=== PATIENT | female | born 1950 | race Caucasian/White ===

== ENCOUNTER → 2018-04-24 | Outpatient (CLI) | payer OTHER, MEDICARE | LOC: FIMAGING 09:11 | PROVIDERS: ATTEND Orthopaedic Surgery | DX: M16.12 Unilateral primary osteoarthritis, left hip (principal); M48.061 Spinal stenosis, lumbar region without neurogenic claudication; M43.16 Spondylolisthesis, lumbar region ==

== ENCOUNTER 2018-05-20 10:20 | Inpatient (IN) | payer OTHER ==
--- NOTE | 2018-05-20 06:18 | PDHPUP ---
History & Physical Update H&P update statement: This history and physical update is based on an assessment of the patient which was completed after admission or registration (within 24 hours), but prior to the surgery/procedure. H&P update: no change in patient's condition since H&P completed
--- NOTE | 2018-05-20 06:19 | PDIAF ---
- Diagnosis Diagnosis: left hip djd Code Status: Full Code - Medication Management Discharge Medications: Medications to Continue on Transfer Gabapentin [Neurontin 100 MG (*)] 200 mg PO HS PRN 05/03/18 [Last Taken Unknown] Discharge Medications: Refer to the Discharge Home Medication list for PRN reason. - Orders Services needed: Home Care, Physical Therapy Home Care Face to Face: I certify that this patient was under my care and that I had the required wgva-in-dzlf encounter meeting the encounter requirements on the discharge day. My findings support the fact that the patient is homebound as defined in Home Care Face to Face Continued: CMS Chapter 7 Medicare Benefits Manual 30.1.1 , The condition of the patient is such that there exists a normal inability to leave home and consequently, leaving home would require a considerable and taxing effort. Diet Recommendation: no restrictions on diet Diet Texture: Regular Texture Diet Additional Instructions: TOTAL JOINT ARTHROPLASTY DISCHARGE INSTRUCTIONS 1. Your surgeon follows the [facility] protocol for reducing your risk of DVT (blood clots) following surgery. Medication will be ordered to prevent blood clots. A sudden increase in calf pain and/or swelling could indicate a blood clot in your leg. If this occurs, please call your surgeon or his/her diver assistant. An ultrasound of the leg may be necessary to diagnose a blood clot. If you have conditions that make you a higher risk for blood clots, your surgeon may use more aggressive ways to prevent them. Notify your surgeon if you think you are a high risk for blood clots. 2. Wear your white surgical stockings (KERA hose) for 2 weeks. This decreases your swelling and may help prevent blood clots. It is ok to remove KERA hose at night time to give your legs a break. 3. Swelling and bruising in the surgical leg is common. If you feel that it is excessive, please notify your surgeon. 4. Elevate your surgical leg with the ankle above the hip several times every day. Please keep the leg straight when you elevate by putting pillows under your foot. Do not put pillows under your knee. This will make being able to fully straighten more difficult. This is uncomfortable, but try to do it as much as possible. 5. For total knee replacements use compressive wrap on your knee for 3-5 days after surgery, then you can discontinue it. 6. Use a walker or crutches for 1-2 weeks. Progress your weight-bearing as tolerated. You may start to use a cane when you feel stable and safe. 7. You will receive physical therapy instructions in the hospital. Continue those exercises at home. There are additional exercises in the total joint booklet you were given before surgery. Outpatient physical therapy will begin 7- 10 days after surgery. Please schedule this in advance. 8. Use ice on your knee at least 3-5 times every day for 30 minutes. This helps reduce pain and swelling. Also use it at night before falling asleep. 9. Leave your surgical dressing in place for 2 weeks. Your dressing is water resistant, but not waterproof. Cover it with Saran Wrap or Kospf-p-Dqjf before showering. You may shower as soon as you feel safe entering a shower. If you notice bleeding from your incision 2 or 3 days after surgery, please notify your surgeon. 10. Due to narcotics, decreased activity and altered diet, most patients experience constipation after surgery. Use wrju-qdg-wjewghl stool softeners while you are on narcotics. 11. You may drive a car when you are comfortable bearing weight, have good muscular control of your leg and are off narcotics. This usually occurs 2-4 weeks after surgery, depending on which leg was operated on. 12. If there are questions not addressed here, please refer the [facility] book given for more information. If you still have questions, please contact your surgeon s office. 13. If you have a life-threatening emergency, please call 911 and go to the emergency room immediately. For non-life threatening emergencies, please call your physicians office for advice before going to the emergency room. - Follow Up Care Current Providers and Referrals: Wendie Koch PA [Primary Care Provider] - Aftab Ty MD [Medical Doctor] -
[~2018-05-20 10:20] MED LIST: MIDAZOLAM 2 MG/2 ML VIAL IVP ONE; ROPIVACAINE 0.2% 80 MG, EPINEPHrine 0.2 MG, KETOROLAC TROMETHAMINE 30 MG, morphINE 10 M... IU ONE; TRANEXAMIC ACID 1,000 MG in NS 100 ML IV ONE
[2018-05-20] MEDS ORDERED: ACETAMINOPHEN 325 MG TAB PO ONE (11:06)
[2018-05-20] MEDS ORDERED: ceFAZolin 2 GM/DEXTROSE 100 ML IV ONE (11:06)
[2018-05-20] MEDS ORDERED: FAMOTIDINE 20 MG TAB PO ONE (11:06)
[2018-05-20] MEDS ORDERED: LIDOCAINE 1% 2 ML INJ ID PRN (11:07)
[2018-05-20] MEDS ORDERED: LR 1,000 ML IV ONE (11:07)
[2018-05-20] MEDS ORDERED: fentaNYL 100 MCG/2 ML INJ ONE (11:46)
[2018-05-20] MEDS ORDERED: PROPOFOL/EMULSION 500 MG/50 ML BOTTLE IV ONE (11:48)
[2018-05-20] MEDS ORDERED: ceFAZolin 1 GM/5 ML SYR ONE (12:01)
[2018-05-20] MEDS ORDERED: MIDAZOLAM 2 MG/2 ML VIAL ONE ×2 (12:34→13:09)
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
[2018-05-20] MEDS ORDERED: MEPERIDINE 25 MG/0.5 ML AMP IVP PRN (12:40)
[2018-05-20] MEDS ORDERED: oxyCODONE IR 5 MG TAB PO PRN (12:40)
[2018-05-20] MEDS ORDERED: fentaNYL 100 MCG/2 ML INJ IVP PRN (12:40)
[2018-05-20] MEDS ORDERED: PROMETHAZINE HCL 25 MG/ML INJ IVP PRN ×2 (12:40→14:39)
[2018-05-20] MEDS ORDERED: ONDANSETRON 4 MG/2 ML VIAL IVP PRN ×2 (12:40→14:39)
[2018-05-20] MEDS ORDERED: HYDROmorphONE/DILAUDID 2 MG/ML INJ IVP PRN (12:40)
[2018-05-20] MEDS ORDERED: ALBUTEROL 3 ML DEYVIAL IH PRN (12:40)
[2018-05-20] MEDS ORDERED: DIAZEPAM 5 MG/ML 1 ML SYR IVP PRN (12:40)
[2018-05-20] MEDS ORDERED: NALOXONE HCL 0.4 MG/ML INJ IVP PRN (12:40)
[2018-05-20] MEDS ORDERED: METOCLOPRAMIDE 10 MG/2 ML VIAL IVP PRN ×2 (12:40→14:39)
[2018-05-20] MEDS ORDERED: BUPIVACAINE/DEXTROSE 7.5MG/ML 2 ML SPINAL AMP SP ONE (12:52)
[2018-05-20] MEDS ORDERED: ONDANSETRON 4 MG/2 ML VIAL ONE (14:03)
[2018-05-20] MEDS ORDERED: DEXAMETHASONE 4 MG/ML VIAL ONE (14:03)
[2018-05-20] MEDS ORDERED: GABAPENTIN 100 MG CAP PO PRN (14:39)
[2018-05-20] MEDS ORDERED: TEMAZEPAM 15 MG CAP PO PRN (14:39)
[2018-05-20] MEDS ORDERED: diphenhydrAMINE 25 MG CAP PO PRN (14:39)
[2018-05-20] MEDS ORDERED: LACTULOSE 20 GM/30 ML UDCUP PO PRN (14:39)
[2018-05-20] MEDS ORDERED: MAGNESIUM HYDROXIDE 30 ML UDCUP PO PRN (14:39)
[2018-05-20] MEDS ORDERED: ONDANSETRON DISINTEGRATING 4 MG TAB PO PRN (14:39)
[2018-05-20] MEDS ORDERED: POLYETHYLENE GLYCOL 3350 17 GM PKT PO PRN (14:39)
[2018-05-20] MEDS ORDERED: BISACODYL 10 MG SUPP PR PRN (14:39)
[2018-05-20] MEDS ORDERED: CYCLOBENZAPRINE 10 MG TAB PO PRN (14:39)
[2018-05-20] MEDS ORDERED: DIPHENOXYLATE/ATROPINE LOMOTIL 1 TAB PO PRN (14:39)
[2018-05-20] MEDS ORDERED: PROMETHAZINE HCL 25 MG SUPPR PR PRN (14:39)
--- NOTE | 2018-05-20 14:39 | POSTOPPROG ---
Post Op Note Date of Operation: 05/20/18 Surgeon: Aftab Ty Technical Support Consultant: edward Anesthesiologist: jeffry Anesthesia: Spinal Pre-op Diagnosis: left hip djd Post-op Diagnosis: same Indication: same Procedure: left raj Inf/Abcess present in the surg proc area at time of surgery?: No Depth: Deep Incisional (Fascial) EBL: 100-500 Drains: Hemovac
--- NOTE | 2018-05-20 15:06 | POSTANESTH ---
Post Anesthetic Evaluation Cardiovascular Status: Normal, Stable Respiratory Status: Normal, Stable Level of Consciousness/Mental Status: Can Participate in Eval Pain Control: Adequate, Prn Tx Ordered Complications Possibly Related to Anesthesia: None Noted
[2018-05-20] MEDS: LR 1,000 ML IV SCH (16:41)
[2018-05-20] MEDS: oxyCODONE IR 5 MG TAB PO PRN ×3 (16:44→23:50)
[2018-05-20] MEDS: ACETAMINOPHEN 325 MG TAB PO SCH ×2 (18:21→23:34)
[2018-05-20] MEDS: ceFAZolin 2 GM/DEXTROSE 100 ML IV SCH (19:55)
[2018-05-20] MEDS: SENNOSIDES/DOCUSATE SODIUM TAB PO SCH (19:59)
[2018-05-20] MEDS: FAMOTIDINE 20 MG TAB PO SCH (19:59)
[2018-05-20] MEDS: ASPIRIN 325 MG TAB PO SCH (21:02)
[2018-05-20] MEDS: TRANEXAMIC ACID 650 MG TAB PO SCH (21:02)
[2018-05-21] MEDS: LR 1,000 ML IV SCH (01:30)
[2018-05-21] MEDS: ceFAZolin 2 GM/DEXTROSE 100 ML IV SCH (03:12)
[2018-05-21] MEDS: ACETAMINOPHEN 325 MG TAB PO SCH ×2 (05:23→11:37)
[2018-05-21] MEDS: TRANEXAMIC ACID 650 MG TAB PO SCH (05:25)
[2018-05-21] MEDS: oxyCODONE IR 5 MG TAB PO PRN (05:41)
--- NOTE | 2018-05-21 06:28 | PDMN ---
Medical Necessity Medical necessity: Pt meets INPT criteria per and [facility] [place] S-560 Hip Arthroplasty (MC IPO procedure).
[2018-05-21] MEDS ORDERED: traMADol 50 MG TAB PO PRN (08:40)
[2018-05-21] MEDS: SENNOSIDES/DOCUSATE SODIUM TAB PO SCH (08:43)
[2018-05-21] MEDS: ASPIRIN 325 MG TAB PO SCH (08:43)
[2018-05-21] MEDS: FAMOTIDINE 20 MG TAB PO SCH (08:44)
--- NOTE | 2018-05-21 09:04 | SOAPPROG ---
SOAP Progress Note Assessment/Plan: Assessment: s/p raj Plan:d/c home wehn cleared by pt stable bp dvt precautions reviewed f/u at two weeks , seek attn for increasing pain, leg pain, or other focal complaint 05/21/18 09:01 Subjective: nervous about going home no cp or sob minimal pain 10/03 currently Objective: Vital Signs Temp Pulse Resp BP Pulse Ox 36.7 C 68 17 98/54 L 97 05/21/18 07:40 05/21/18 07:40 05/21/18 07:40 05/21/18 07:40 05/21/18 07:40 Laboratory Results 05/21/18 05:00 05/20/18 05/21/18 05/22/18 05:59 05:59 05:59 Intake Total 3615 Output Total 1500 350 Balance 2115 -350 dressing clean , dry and intact intact pdf,df,ehl toes warm and pink neg homans greyson xrays stable alignment no fx or lucency ICD10 Worksheet Patient Problems: Problems Problem Status Onset Hip arthritis Acute - ICD10 Problem Qualifiers (1) Hip arthritis
--- NOTE | 2018-05-21 10:39 | ASDISCHSUM ---
Discharge Information Plan Status:Home with Home Health Medically Cleared to Leave:05/21/2018 Discharge Date:05/21/2018 CM D/C Disposition: ADT D/C Disposition:Home Health Service Projected Discharge Date:05/21/2018 11:00 AM Transportation at D/C: Discharge Delay Reason: Follow-Up Date:05/21/2018 11:00 AM Discharge Slot: Final Diagnosis: Placement Information Referral Type:*Home Health Care Services Referral ID:[id number] Provider Name:[facility] Address 1[address] [facility] [address] Address 2: City:[place] Selection Factors: State:[place] Patient Contact Information Contact Name:ALANA Relationship:Friend Address: Work Phone: City: [facility] Phone: [facility] Code: Email: Financial Information Financial Class:Medicare Primary Plan Desc:MEDICARE OUTPATIENT Primary Plan Number:[id number] Secondary Plan Desc:Cardiac Dimensions Secondary Plan Number:[id number] Assessment Information LACE LACE Length of stay for Answers: 1 day current admission Acuity / Level of Answers: Yes Care: Did the patient have an inpatient admission? Comorbidities - select Answers: Opioid dependence all that apply / Chronic pain # of Emergency department Answers: 0 visits in the last 6 months Social determinants Answers: Mental health diagnosis (anxiety, depression, pers onality disorders, etc.) Score: 11 Date Signed: 05/21/2018 10:38 AM Electronically Signed By:SOPHIE Cee [facility] CM Progress Note CM Note CM Note Notes: Pts case discussed w/ JAKE Padgett and Agustina, physical therapist. Pt is being discharged today. CM met w/ pt for dispo planning. Pt has a son that is schizophrenic. Pt has supportive friends that she can talk to. Pt is aware of [facility]. Pt is agreeable to have HC services. Referral made to [facility]. [facility] is able to accept. CM confirmed pts phone number and address. Dayron will call to give report. CM available for changes. Plan: [facility]; PT Date Signed: 05/21/2018 10:37 AM Electronically Signed By:SOPHIE Cee Intervention Information
--- NOTE | 2018-05-21 10:39 | ASMTCMCOM ---
CM Note CM Note Notes: Pts case discussed w/ Dayron RN and Agustina, physical therapist. Pt is being discharged today. CM met w/ pt for dispo planning. Pt has a son that is schizophrenic. Pt has supportive friends that she can talk to. Pt is aware of [facility]. Pt is agreeable to have HC services. Referral made to [facility]. [facility] is able to accept. CM confirmed pts phone number and address. Dayron will call to give report. CM available for changes. Plan: [facility]; PT Date Signed: 05/21/2018 10:37 AM Electronically Signed By:SOPHIE Cee
[2018-05-21 12:09] VITALS: BP 109/44
--- NOTE | 2018-05-25 08:19 | GOP ---
DATE OF OPERATION: 05/20/2018 SURGEON: Aftab Ty MD INSTANTIZER OPERATOR: Oliver Villafuerte, rn neurosurgical who was a medical necessity for the entirety of the case. PREOPERATIVE DIAGNOSIS: Left hip degenerative joint disease. POSTOPERATIVE DIAGNOSIS: Left hip degenerative joint disease. PROCEDURE PERFORMED: Left total hip arthroplasty, MAKOplasty, anterior hip. FINDINGS: SPECIMENS: To Pathology, the femoral head. INDICATIONS: The patient is a 68-year-old woman with end-stage arthritis to her left hip. She has c linical and radiographic features consistent with this. She has failed all attempts at conservative management. I have, therefore, recommended operative intervention. I have outlined the surgical pro cedure, risks, benefits, and alternatives. She wished to proceed. Written consent was signed and pl aced in patient's chart. DESCRIPTION OF PROCEDURE: The patient was identified in the preanesthesia area. The left hip clearl y demarcated as the operative site with indelible marker. She was given 2 g of Ancef intravenously i n route to the operative suite. In the OR, spinal anesthetic was placed, followed by sedation. She was positioned in the supine position. All bony prominences were well padded. Appropriate time-out procedure was carried out. The pelvis and lower extremities were sterilely prepped and draped in usu al fashion. Attention was first turned to the right hemipelvis. A small incision was made over the iliac crest, 3 pins were then placed, and the pelvic reference array affixed. Attention was then turned to the left hip an anterior approach was made. Thick subcutaneous flaps we re elevated. The fascia was opened in the origin of its fibers and the tensor retracted laterally. The underlying vascular structures were identified, ligated, cauterized, and transected. The rectus was elevated off the capsule and retractors were placed into an extracapsular position. A T capsulot kandice was made. Retractors were placed into an intracapsular position. A bony wedge was withdrawn fro m the femoral neck and the femoral head withdrawn. An acetabular check point had been placed as well . All soft tissue was removed from the acetabulum. The bony landmarks were entered into the compute r in standard fashion. Following the MAKOplasty protocol, reaming was carried out with a 54 mm reamer in an open angle of 40 degrees and anteversion of 20 degrees. A 54 mm Trident I shell was then impacted, confirmed to be f ully seated. A 0-degree X3 liner was then placed and again confirmed to be fully seated, and attenti on was then turned to the femur, which was delivered through the use of soft tissue releases and exte nsion of the table. The proximal canal was opened and serial broaching carried out to a size 4 stem. Trial reduction was carried out, and ultimately, a 36 mm +2.5 mm neck length was selected for the h ead and neck. This restored full leg lengths and there was no instability with full extension, exter nal rotation to 90 degrees. The trial stem was withdrawn. The final stem was impacted confirmed to be fully seated. Additional trialing was carried out, and ultimately, a 36 mm +2.5 mm neck length head was then placed across the cleansed trunnion. The hip was copiously irrigated and reduced. Stability profile allow ed full extension with external rotation to 90 degrees without subluxation. Leg lengths were equal. Hip was copiously irrigated with pulsatile lavage. The tissue injected with a joint cocktail of ropi vacaine, morphine, Toradol, and epinephrine. The fascia closed using a 0 Vicryl. A 10-Dutch drain had been placed. Subcutaneous tissue closed using 2-0 Monocryl and a zip line closure, followed by p ressure dressing at the surface. She was awakened, extubated, and taken to recovery room in good, st able condition. TOTAL TOURNIQUET TIME: None. COMPLICATIONS: None. IMPLANTS: [place] Trident II acetabular shell 54 mm, a 0-degree X3 liner, 36 mm inner diameter Accol ryann II 127 degree neck angle hip stem size 4, and a Biolox Delta ceramic head 36 mm, +2.5 mm neck constance [facility]. DISPOSITION: To the recovery room, then the floor. She is weightbearing, range of motion as tolerat ed with anterior hip precautions. /[id number]/MODL
--- NOTE | 2018-05-25 08:39 | GDS ---
ADMITTING DIAGNOSIS: Left hip degenerative joint disease. DISCHARGE DIAGNOSIS: Left hip degenerative joint disease. PROCEDURE: Left total hip arthroplasty. HISTORY OF PRESENT ILLNESS: The patient is a 68-year-old woman with end-stage arthritis to her left hip. She has failed all attempts at conservative management. She presents today for elective total hip replacement. HOSPITAL COURSE: She was admitted to the hospital after uncomplicated total hip arthroplasty. She t olerated the procedure well. Overnight, she had no complications. At the time of discharge, she was tolerating an oral diet. Pain was well controlled on oral medicines. She was voiding without diffi culty. Dressing was clean, dry, and intact. She had negative Homans. X-rays were anatomic. DISCHARGE ACTIVITY: Weightbearing as tolerated. Anterior hip precautions. Daily dressing changes. No soaking or immersion. FOLLOWUP: In 2 weeks. Seek attention for increasing redness, swelling, drainage. DISCHARGE MEDICATIONS: Oxycodone 5 mg 1-2 every 6 hours p.r.n. pain, aspirin 325 mg p.o. daily for 6 weeks. /[id number]/MODL
== END 2018-05-21 12:06 | disposition home health service (06) | DRG 470 ==
LOC: F3N 10:49
PROVIDERS: ADMIT Orthopaedic Surgery; ATTEND Orthopaedic Surgery
PROC: 0SRB04Z Replacement of Left Hip Joint with Ceramic on Polyethylene Synthetic Substitute, Open Approach (ICD-10-PCS; principal; 2018-05-20 12:45)
DX: M16.12 Unilateral primary osteoarthritis, left hip (principal); I45.10 Unspecified right bundle-branch block; F41.9 Anxiety disorder, unspecified; F32.9 Major depressive disorder, single episode, unspecified
CPT/HCPCS: 97110-GP; 97116-GP; 97161-GP; 97165-GO; 97535-GO; G8978-GP-CJ; G8979-GP-CI; G8987-GO-CJ; G8988-GO-CJ; G8989-GO-CJ; J0171; J0690; J1100; J1885; J2250; J2270; J2405; J2704; J2795; J3010

== ENCOUNTER → 2018-07-01 | Outpatient (CLI) | payer OTHER, MEDICARE | LOC: BMCIMAGING 09:52 | PROVIDERS: ATTEND Physician Assistant | DX: Z47.1 Aftercare following joint replacement surgery (principal); Z96.642 Presence of left artificial hip joint ==

== ENCOUNTER → 2018-08-17 | Outpatient (CLI) | payer OTHER, MEDICARE | LOC: BMCIMAGING 13:06 | PROVIDERS: ATTEND Physician Assistant | DX: M25.561 Pain in right knee (principal); M22.2X1 Patellofemoral disorders, right knee ==

== ENCOUNTER → 2018-11-17 | Outpatient (CLI) | payer OTHER, MEDICARE | LOC: BMCIMAGING 10:34 | PROVIDERS: ATTEND Orthopaedic Surgery | DX: Z47.1 Aftercare following joint replacement surgery (principal); Z96.643 Presence of artificial hip joint, bilateral ==